=== PATIENT | female | born 1995 | race Caucasian/White ===

== ENCOUNTER 2020-06-13 15:35 | Emergency (ER) | payer OTHER, SELFPAY ==
[2020-06-13 15:36] VITALS: BP 130/77; PULSE 90; RESP 18; TEMP 36.2; O2SAT 97; BMI 32.9
--- NOTE | 2020-06-13 15:50 | ED.DCSUM_ITS ---
- ER Visit Summary Date of Service: 06/13/20 Chief Complaint: Back pain History of Present Illness: The patient is a 25 F presenting with back pain. Patient states on June 10 she injured herself at work. She states she was lifting and turning at the same time and felt pain in her left lower back. She states today she was again lifting and had increasing pain in her lower back. She did not fall to the ground. She has no bowel or bladder incontinence. She has been able to ambulate with pain. She has tried ibuprofen at home. Denies fever or other complaints. Physical Examination: Vitals are stable. Patient is afebrile. Alert no acute distress. HEENT exam is unremarkable. Neck is supple. Lungs are clear and equal bilaterally. Heart is regular rate and rhythm. Abdomen is soft nontender nondistended. Back: Left lumbar paraspinal muscle tenderness, no midline tenderness. Extremities are unremarkable. Skin is warm and dry. No focal neurologic deficit. Normal strength and sensation Remainder of exam is unremarkable. Emergency Department Course and Treatment: Patient was given Toradol, Norflex IM. She was given prescription for Naprosyn and Flexeril. Advised to follow-up with [facility]. Advised return to ED for worsening complaints. Disposition: Discharge home Impression: Lumbar strain This note was generated with [employer] dictation software. It may contain incorrect words, spelling, and punctuation that were not noted in review of the chart prior to signing ED Disposition - Plan for ED Patient: Instructions: ED Back Sprain/Strain Prescriptions: cycloBENZAPRine HCl [Flexeril] 10 mg PO TID PRN #20 tab PRN Reason: Muscle Spasm Prescription Printed Naproxen [Naprosyn] 500 mg PO BID PRN #20 tab Prescription Printed Referrals: [facility] [GROUP OF PHYSICIANS] -
[2020-06-13] MEDS: Ketorolac 60 MG/2 ML Vial IM (15:56)
[2020-06-13] MEDS: Orphenadrine 60 MG/2 ML Ampul IM (15:56)
== END 2020-06-13 16:23 | disposition home or self-care (01) ==
LOC: ED 16:11
PROVIDERS: Emergency Provider Emergency Medicine
DX: S39.012A Strain of muscle, fascia and tendon of lower back, initial encounter (principal); X58.XXXA Exposure to other specified factors, initial encounter
CPT/HCPCS: 96372; 99282

== ENCOUNTER 2020-07-12 16:00 | Outpatient (RCR) | payer OTHER, SELFPAY ==
--- NOTE | 2020-06-29 17:19 | HP.PTEVAL ---
Patient's Visit Information CHETAN VASQUEZ is a 25 year old F referred to Physical Therapy by JERROD Lantigua with a diagnosis of lower back strain. Date of Evaluation: 06/29/20 Physical Therapist: Juan Douglass DPT, OCS, CSCS - Visit Plan Frequency: 2x /Week Duration: 4-6 Weeks Plan: 2x/week for 4-5 weeks as needed for. 1. stretch quads and HS. 2. ensure progression of LB rom with yoga flows. 3. core mat strength to HEP. 4. Ensure body echanics with lifting technique to minmize future problems. 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 Hurt it about 3 weeks ago lifting product off a hand kevin and got lower left back pain. No previous history. Took it easy that day as she was in pain. Two days later had hard time stadning after conference call. Could not stadn up and went to ER. Been on restrictions since then. Getting better overall. Went for run yesterday adn did OK. 1/10 pain today after lifting 30# kid at playground. Coworkers help her out and she is on vacation this week. Feels 70% bck this week but hard to tell since she is off work. Sleep is not a big issue anymore, muscle relaxers help. But lying down is worse then standing. driving makes her LB worse. Basic ADLs are going OK. No more leg symptoms but did have pain at first. Shot in ER helped relax muscles. - Pain L LBP Pain Intensity (Out of 10): 1 Pain Intensity Range: 0, 7 - Objective Walks normal, Trasnfers bded adn chair normal. Steps reciprocal without rail or weakness. reflexes 2/3 patella adn achilles. Sensation LE WNL to gross light touch. Strength LE 4+/5 without myotomal. HS and quads mildly tight. - SLR. - slump test. L/S AROM full ext without pain, full felxion without pain, SB right slightly tender on left side but full. - Goals Goal 1:: sleep and lie down without pain after work Goal Time Frame: 4-6 Weeks Goal 2:: Patient feel 100% better overall with pain 0/10 Goal Time Frame: 4-6 Weeks Goal 3:: Full job at work without nterruption of pain Goal Time Frame: 4-6 Weeks Goal 4:: demonstrate good body mechanics on lifting technique. Goal Time Frame: 4-6 Weeks - Rehabilitation Potential Physical Therapy Diagnosis: pain from LB strain. Rehabilitation Potential: Good - Anticipated Interventions Patient/Client Instruction: Educate patient on: Condition, Plan of Care For the Purpose of:: To decrease pain, To increase ROM, To improve muscle performance and motor function, To increase tolerance to activity/condition/position, To improve ability of physical actions for home/community/work/leisure Therapeutic Exercise to Include: Strength training, Flexibilty training, Gait and locomotor training, Passive ROM, Active ROM, Dynamic Lumbar Stabilization, Jf Exercises For the Purpose of:: To decrease pain, To increase ROM, To improve muscle performance and motor function, To improve ability of physical actions for home/community/work/leisure, To improve gait and locomotor functions Thank you for the opportunity to evaluate your patient. For Medicare and Medicare HMO plans, please review the plan of care and approve it. It will need to be FAXED BACK to us at [phone] for Medicare purposes. For Medicare only, by signing this I certify the plan of care. Please let me know if there are questions or concerns regarding this plan of care. Physician Signature: Date:
--- NOTE | 2020-09-16 17:20 | HP.PT.NRP ---
CHETAN VASQUEZ was seen in my office for initial evaluation on 06/29/20. The following Plan of Care was established for this patient: Initial Frequency: 2x /Week Initial Duration: 4-6 Weeks Patient/Client Instruction: Educate patient on: Condition, Plan of Care For the Purpose of:: To decrease pain, To increase ROM, To improve muscle performance and motor function, To increase tolerance to activity/condition/position, To improve ability of physical actions for home/community/work/leisure Therapeutic Exercise to Include: Strength training, Flexibilty training, Gait and locomotor training, Passive ROM, Active ROM, Dynamic Lumbar Stabilization, Jf Exercises For the Purpose of:: To decrease pain, To increase ROM, To improve muscle performance and motor function, To improve ability of physical actions for home/community/work/leisure, To improve gait and locomotor functions This patient was last seen in our office 07/12/20. Pertinent comments regarding their Physical therapy will appear below: Pt seen 2 visits of POC and was much better She no showed for her next 3 visits. at this point, it has been over 2 months adn I iwll discontinue due to nonattendance. At this point I will be discontinuing this patient from physical therapy. I would be happy to see this patient again in the future if found appropriate by the physician. Thank you! Juan Douglass, DPT, OCS, CSCS
== END 2020-07-12 19:00 | disposition home or self-care (01) ==
LOC: PT 16:00
PROVIDERS: Referring Provider Physician Assistant; Visit Provider Physician Assistant
DX: S39.012D Strain of muscle, fascia and tendon of lower back, subsequent encounter (principal)
CPT/HCPCS: 97110; 97161